=== PATIENT | female | born 1955 | race Caucasian/White ===

== ENCOUNTER → 2021-08-27 | Outpatient (CLI) | payer OTHER ==
[~2021-08-27] MED LIST: ASPIRIN EC81 MG PO; ATORVASTATIN PO; B-121000 MCG PO; CALTRATE 600600 MG; CINNAMON500 MG PO; EVENING PRIMRO500 MG PO; GLUCOSAMINE &1 EAC1 PO; LISINOPRIL-HCT1 EAC2 PO; MULTIVITAMIN PO; [UNRECOGNIZED DRUG - MIXTURE] PO
== END ==
LOC: US 10:11
PROVIDERS: ATTEND Family Medicine
DX: R94.5 Abnormal results of liver function studies (principal)
CPT/HCPCS: 76700